=== PATIENT | female | born 1955 | race Caucasian/White ===

== ENCOUNTER 2017-10-24 04:00 | Inpatient (IN) | payer MEDICARE, OTHER ==
[~2017-10-24] VITALS: Ht 167.6 cm; Wt 94.7 kg
[2017-10-24] MEDS ORDERED: normal saline 1000ML IV soln IVB STA (04:09)
[2017-10-24] MEDS ORDERED: tranexamic acid inj. 1,000 MG in normal saline 100ml IV soln 90 ML IV ONE (04:10)
[2017-10-24] MEDS ORDERED: diphenhydrAMINE 50 mg/ml inj IV ONE (04:10)
[2017-10-24] MEDS ORDERED: famotidine/PF 10 mg/ml inj IV ONE (04:10)
[2017-10-24] MEDS ORDERED: methylPREDNISolone sod succ 125mg/2ml vial IV ONE (04:10)
[2017-10-24] MEDS ORDERED: tranexamic acid 100mg/ml inj. ONE (04:32)
[2017-10-24] MEDS ORDERED: LIDOcaine 2% 10ml TOPICAL JELLY (Urojet) MM ONE ×2 (04:50→05:15)
[2017-10-24 05:57] LABS: BASOPHILS # (AUTO) 0.1 X10'3 (0-0.2); BASOPHILS % (AUTO) 0.8 % (0-1); EOSINOPHILS # (AUTO) 0.3 X10'3 (0-0.9); HEMATOCRIT 39.9 % (35.0-45.0); HEMOGLOBIN 13.9 g/dl (12.0-16.0); LYMPHOCYTES % (AUTO) 22.8 % (21-51); MEAN CORPUSCULAR HEMOGLOBIN 35.6 PG (27.0-31.0); MEAN CORPUSCULAR HGB CONC 34.8 % (33.0-36.5); MEAN CORPUSCULAR VOLUME 102.2 FL (78-98); MEAN PLATELET VOLUME 9.6 FL (7.4-10.4); MONOCYTES # (AUTO) 0.8 X10'3 (0-0.9); MONOCYTES % (AUTO) 8.6 % (2-12); NEUTROPHILS # (AUTO) 5.8 X10'3 (1.8-7.7); NEUTROPHILS % (AUTO) 64.8 % (42-75); PLATELET COUNT 271 X10'3 (140-440); RED CELL DISTRIBUTION WIDTH 14.1 % (11.5-14.5); WHITE BLOOD COUNT 8.9 X10'3 (4.5-11.0)
[2017-10-24 06:00] LABS: INR 1.1 INR; PROTHROMBIN TIME 11.7 SECONDS (9.0-12.0)
[2017-10-24 06:04] LABS: ALANINE AMINOTRANSFERASE 37 U/L (12-78); ALBUMIN 3.6 G/DL (3.4-5.0); ALKALINE PHOSPHATASE 79 IU/L (46-116); ANION GAP 13 (8-16); ASPARTATE AMINO TRANSFERASE 22 U/L (10-37); BILIRUBIN,TOTAL 0.7 MG/DL (0.1-1.0); BLOOD UREA NITROGEN 17 MG/DL (7-18); BUN/CREATININE RATIO 18.7 (6.6-38.0); CALCIUM 7.2 MG/DL (8.5-10.1); CHLORIDE 104 MMOL/L (99-107); CREATININE 0.91 MG/DL (0.40-0.90); GLUCOSE 115 MG/DL (70-104); POTASSIUM 3.5 MMOL/L (3.5-5.1); SODIUM 143 MMOL/L (135-145); TOTAL CARBON DIOXIDE 25.7 MMOL/L (24-32); TOTAL PROTEIN 7.1 G/DL (6.4-8.2); eGFR 62 ML/MIN
[2017-10-24] MEDS ORDERED: normal saline 1000ml 1,000 ML IV SCH (06:07)
[2017-10-24] MEDS ORDERED: potassium Cl 20 mEq SR tablet PO PRN ×2 (06:10)
[2017-10-24] MEDS: K, MAG and/or Phos replacement - Verify level? MC SCH ×2 (06:10→08:00)
[2017-10-24] MEDS ORDERED: potassium Cl 40MEQ/250ML bag 250 ML IV SCH (06:10)
[2017-10-24] MEDS ORDERED: morphine 4 MG/ML inj SYRINge IV PRN ×2 (06:10)
[2017-10-24] MEDS ORDERED: potassium Cl 40MEQ/250ML bag 250 ML IV PRN (06:10)
[2017-10-24] MEDS ORDERED: acetaminophen 325mg tablet PO PRN ×2 (06:10)
[2017-10-24] MEDS ORDERED: ondansetron/PF 4mg/2ml inj IV PRN (06:10)
[2017-10-24] MEDS ORDERED: AMLO5TAB2 PO (06:39)
[2017-10-24] MEDS ORDERED: LISI-600 PO (06:40)
[2017-10-24] MEDS ORDERED: ESOM20CA PO (06:41)
[2017-10-24] MEDS ORDERED: TRAZ-146 PO (06:42)
[2017-10-24 07:42] VITALS: BP 144/79
[2017-10-24 08:00] VITALS: BP 144/73
[2017-10-24] MEDS ORDERED: methylPREDNISolone sod succ/PF 40mg inj. IV SCH (08:00)
[2017-10-24] MEDS ORDERED: famotidine/PF 10 mg/ml inj IV SCH (08:00)
[2017-10-24] MEDS ORDERED: diphenhydrAMINE 50 mg/ml inj IV SCH (08:00)
[2017-10-24 09:00] VITALS: BP 149/82
== END 2017-10-24 09:37 | disposition left against medical advice (07) | DRG 916 ==
LOC: ER 04:01 → ED HOLD 06:07 → CICU 2S 07:30
PROVIDERS: ADMIT Internal Medicine Critical Care Medicine; ATTEND Internal Medicine Critical Care Medicine
PROC: 30233L1 Transfusion of Nonautologous Fresh Plasma into Peripheral Vein, Percutaneous Approach (ICD-10-PCS; principal; 2017-10-24)
PROC: 30233K1 Transfusion of Nonautologous Frozen Plasma into Peripheral Vein, Percutaneous Approach (ICD-10-PCS; 2017-10-24)
DX: T78.3XXA Angioneurotic edema, initial encounter (principal); I10 Essential (primary) hypertension; T88.7XXA Unspecified adverse effect of drug or medicament, initial encounter; Y84.8 Other medical procedures as the cause of abnormal reaction of the patient, or of later complication, without mention of misadventure at the time of the procedure; Z53.21 Procedure and treatment not carried out due to patient leaving prior to being seen by health care provider; Z88.8 Allergy status to other drugs, medicaments and biological substances; Z79.899 Other long term (current) drug therapy; Y92.89 Other specified places as the place of occurrence of the external cause
CPT/HCPCS: 36415; 80053; 85025; 85610; 86885; 86900; 86901; 96365; 96375; 99291; J1200; J2920; J2930; J3490; J7030; P9059